=== PATIENT | female | born 1955 | race Caucasian/White ===

== ENCOUNTER 2017-11-18 06:58 | Emergency (ER) | payer OTHER ==
[~2017-11-18] VITALS: Ht 172.7 cm; Wt 50.4 kg
--- NOTE | ~2017-11-18 | EKG ---
[facility] [place] [address] ELECTROCARDIOGRAM REPORT Name: KYLAH GUSTAFSON [id number] Admission: 11/18/17 Attend Phys: Discharge: Date of : 59 Report #: [id number] THIS REPORT FOR: //name// [facility] ED Test Date: 2017-11-18 Test Time: 08:13:38 Pat Name: KYLAH GUSTAFSON Department: Room: Gender: F Vest Tailor: [facility] : 1955 Requested By: Johnny Márquez Order Number: [id number] MD: Cruzito Garcia Measurements Intervals [place] Rate: 70 P: 55 ME: 215 QRS: -47 QRSD: 137 T: 95 QT: 441 QTc: 476 Interpretive Statements Sinus rhythm Prolonged ME interval Probable left atrial enlargement Left bundle branch block Compared to ECG 01/07/2014 17:11:22 No significant change was found Electronically Signed On 11-18-2017 8:25:52 CDT by Cruzito Garcia [email or web address] <ELECTRONICALLY SIGNED> By: Cruzito Garcia MD, [facility] 11/18/17824 2 2 Cruzito Garcia MD, FAC /EPI
[~2017-11-18 06:58] MED LIST: ADVAIR 250-501 EACH; ADVAIR 500-501 EACH INH; ADVAIR HFA 230M12 GM INH; ALENDRONATE SOD10 MG; APAP500 PO; ASPIR 8181 MG PO; DEXILANT60 MG PO; DILANTIN100 MG PO; ENDOCET 5-3251 EACH PO; FLONASE 0.05%50 MCG; FLORINEF ACETA0.1 MG PO; FOLIC ACID1 MG PO; KLOR-CON 1010 MEQ PO; LAMICTAL XR200 MG PO; LAMOTRIGINE200 MG PO; LEVAQUIN 500 M500 M3; MESTINON60 MG PO; MOM PO; MULTIVITAMINS PO; NASONEX17 GM SPRAY; NEXIUM 40 MG CA40 M1 PO; NORCO 5-325 TA1 EACH PO; NYSTATIN 1100000 U/M SWISH&SPIT; PERCOCET 5-3251 EACH PO; PREDNISONE 10 M10 M1; PROTONIX40 M2; PROVENTIL HFA6.7 G1 INH; SENOKOT-S1 TA1 PO; TAMSULOSIN HCL0.4 MG PO; TOPAMAX50 MG PO; TYLENOL325 MG PO; VENTOLIN HFA 1818 GM INH; ZOCOR; ZOCOR20 MG PO; ZOFRAN ODT4 MG PO
[2017-11-18 07:32] LABS: ABSOLUTE NEUTROPHILS 6.7 thou/uL (1.4-8.2); BASOPHILS 0.7 % (0.0-2.0); EOSINOPHILS 2.3 % (0.0-3.0); HEMATOCRIT 40.1 % (37.0-47.0); HEMOGLOBIN 13.9 gm/dL (12.0-15.0); LYMPHOCYTES 24.5 % (24.0-44.0); MCHC 34.6 g/dL (28.0-37.0); MCV 89.4 fL (80.0-100.0); MONOCYTES 5.6 % (1.0-8.0); PLATELET COUNT 211 thou/uL (150-400); POLYS 66.9 % (36.0-66.0); RBC 4.49 mil/uL (4.20-5.00); RDW 12.9 % (10.5-14.5); WBC 10.1 thou/uL (4.0-11.0)
[2017-11-18 07:32] LABS: URINE BILIRUBIN NEGATIVE (Negative); URINE BLOOD 3+ (Negative); URINE CLARITY CLEAR; URINE COLOR YELLOW; URINE GLUCOSE-RANDOM* NEGATIVE (Negative); URINE KETONES NEGATIVE (Negative); URINE NITRITE-REFLEX NEGATIVE (Negative); URINE PROTEIN (DIPSTICK) TRACE (Negative); URINE SPECIFIC GRAVITY 1.025 (1.005-1.035); URINE UROBILINOGEN 0.2 E.U./dl (0.2-1.0)
[2017-11-18 07:34] LABS: ANION GAP 13 mmol/L (7-16); BUN 30 mg/dL (7-18); CALCIUM 9.4 mg/dL (8.5-10.1); CHLORIDE 108 mmol/L (98-107); CO2 21 mmol/L (21-32); CREATININE 1.6 mg/dL (0.6-1.0); GLUCOSE 109 mg/dL (74-106); POTASSIUM 3.6 mmol/L (3.5-5.1); SODIUM 142 mmol/L (136-145)
[2017-11-18 07:34] LABS: URINE LEUKOCYTES-REFLEX 2+ (Negative)
[2017-11-18 07:41] LABS: CASTS None Seen /LPF (None Seen); SQUAMOUS 0-3 Few /LPF (0-3); URINE RBC >20 Many /HPF (0-2); URINE WBC-REFLEX >25 Many /HPF (0-5)
[2017-11-18 07:42] LABS: CRYSTALS None Seen /LPF (None Seen); MUCUS 0-3 Light strn/LPF (None Seen); RENAL EPITHELIAL CELLS 0-3 Few /LPF (None Seen); TRANSITIONAL EPITHEL CELL 0-3 Few /LPF (None Seen)
[2017-11-18 07:43] LABS: WBC CLUMPS Few (None Seen)
[2017-11-18 07:44] LABS: ALBUMIN 3.9 g/dL (3.4-5.0); LIPASE 250 U/L (73-393); SGOT 21 U/L (15-37); SGPT 21 U/L (30-65); TOTAL BILIRUBIN 0.3 mg/dL (<0.1-1.0); TOTAL PROTEIN 7.4 g/dL (6.4-8.2); TROPONIN-I <0.06 ng/mL (<0.06)
[2017-11-18] MEDS ORDERED: ZOFRAN ODT8 MG PO (09:00)
[2017-11-18] MEDS ORDERED: ACETAMINOPHEN-1 EAC1 PO (09:00)
[2017-11-18] MEDS ORDERED: FLOMAX0.4 MG PO (09:00)
[2017-11-18] MEDS ORDERED: KEFLEX500 M1 PO (09:00)
[2017-11-18 10:31] VITALS: BP 125/58
== END 2017-11-18 10:32 | disposition home or self-care (01) ==
LOC: ER 06:58
PROVIDERS: Emergency Medicine
DX: N20.1 Calculus of ureter (principal); N18.9 Chronic kidney disease, unspecified; N39.0 Urinary tract infection, site not specified; R31.9 Hematuria, unspecified; G43.909 Migraine, unspecified, not intractable, without status migrainosus; J45.909 Unspecified asthma, uncomplicated; K21.9 Gastro-esophageal reflux disease without esophagitis; Z90.710 Acquired absence of both cervix and uterus; Z88.2 Allergy status to sulfonamides; Z88.0 Allergy status to penicillin; Z88.1 Allergy status to other antibiotic agents

== ENCOUNTER 2021-06-09 15:52 | Emergency (ER) | payer OTHER ==
[~2021-06-09] VITALS: Ht 172.7 cm; Wt 49.9 kg
[~2021-06-09 15:52] MED LIST changes: +ACETAMINOPHEN-1 EAC1 PO; +FLOMAX0.4 MG PO; +KEFLEX500 M1 PO; +ZOFRAN ODT8 MG PO
[2021-06-09 16:40] LABS: BASOPHILS 0.5 % (0.0-2.0); HEMATOCRIT 37.2 % (37.0-47.0); HEMOGLOBIN 12.6 gm/dL (12.0-15.0); LYMPHOCYTES 13.7 % (24.0-44.0); MCH 31.7 pg (26.0-34.0); MCHC 33.8 g/dL (28.0-37.0); MCV 93.7 fL (80.0-100.0); MONOCYTES 8.4 % (1.0-8.0); PLATELET COUNT 257 thou/uL (150-400); POLYS 77.4 % (36.0-66.0); RBC 3.97 mil/uL (4.20-5.00); RDW 13.1 % (10.5-14.5)
[2021-06-09 16:55] LABS: CALCIUM 8.9 mg/dL (8.5-10.1); CREATININE 1.1 mg/dL (0.6-1.0); POTASSIUM 3.3 mmol/L (3.5-5.1)
[2021-06-09 17:01] LABS: ALBUMIN 3.3 g/dL (3.4-5.0); TOTAL BILIRUBIN 0.5 mg/dL (0.2-1.0); TOTAL PROTEIN 8.2 g/dL (6.4-8.2)
[2021-06-09 20:27] LABS: URINE BILIRUBIN NEGATIVE (Negative); URINE BLOOD TRACE (Negative); URINE CLARITY CLEAR; URINE COLOR YELLOW; URINE GLUCOSE-RANDOM* NEGATIVE (Negative); URINE KETONES NEGATIVE (Negative); URINE PROTEIN (DIPSTICK) NEGATIVE (Negative); URINE SPECIFIC GRAVITY 1.015 (1.005-1.035); URINE UROBILINOGEN 0.2 E.U./dl (0.2-1.0)
[2021-06-09 20:37] LABS: URINE LEUKOCYTES-REFLEX 2+ (Negative); URINE NITRITE-REFLEX POSITIVE (Negative)
[2021-06-09 20:43] LABS: BACTERIA-REFLEX >30 Many /HPF (None Seen); CASTS None Seen /LPF (None Seen); CRYSTALS None Seen /LPF (None Seen); MUCUS 0-3 Light strn/LPF (None Seen); SQUAMOUS 0-3 Few /LPF (0-3); URINE RBC 1-2 Rare /HPF (NONE SEEN)
[2021-06-09] MEDS ORDERED: KEFLEX250 MG PO (21:28)
[2021-06-09 22:23] VITALS: BP 132/78
== END 2021-06-09 22:52 | disposition home or self-care (01) ==
LOC: ER 15:52
PROVIDERS: Emergency Medicine
DX: L02.31 Cutaneous abscess of buttock (principal); N39.0 Urinary tract infection, site not specified; G43.909 Migraine, unspecified, not intractable, without status migrainosus; J45.909 Unspecified asthma, uncomplicated; K21.9 Gastro-esophageal reflux disease without esophagitis; Z90.710 Acquired absence of both cervix and uterus; Z91.09 Other allergy status, other than to drugs and biological substances; Z90.11 Acquired absence of right breast and nipple; Z98.890 Other specified postprocedural states; Z79.82 Long term (current) use of aspirin; Z79.899 Other long term (current) drug therapy; Z88.1 Allergy status to other antibiotic agents; Z91.041 Radiographic dye allergy status; Z88.0 Allergy status to penicillin; Z88.2 Allergy status to sulfonamides; Z88.8 Allergy status to other drugs, medicaments and biological substances